=== PATIENT | female | born 1965 | race Caucasian/White ===

== ENCOUNTER 2016-07-30 15:14 | Emergency (ER) | payer OTHER ==
[2016-07-30 15:54] LABS: SPECIFIC GRAVITY 1.025 (1.001-1.030); URINE BILIRUBIN 3+ (NEGATIVE); URINE BLOOD 3+ (NEGATIVE); URINE GLUCOSE (UA) NEGATIVE (NEGATIVE); URINE NITRITE POSITIVE (NEGATIVE); URINE PROTEIN 1+ (NEGATIVE)
[2016-07-30 15:58] LABS: HCG,QUALITATIVE URINE NEGATIVE
[2016-07-30 16:00] LABS: URINE APPEARANCE HAZY; URINE COLOR ORANGE; URINE LEUKOCYTE ESTERASE NEGATIVE (NEGATIVE); URINE UROBILINOGEN 8 mg/dL (0-1 mg/dl)
[2016-07-30 16:03] LABS: URINE RBC 50-60 /hpf
[2016-07-30 16:04] LABS: URINE BACTERIA 1+; URINE EPITHELIAL CELLS 15-20 /hpf
[2016-07-30] MEDS ORDERED: ONDANSETRON 4 MG ODT TAB ONE (16:56)
--- NOTE | 2016-07-30 17:52 | CT ---
Exam: CT abdomen and pelvis without contrast COMPARISON: None INDICATION: Left flank pain. TECHNIQUE: CT examination of the abdomen and pelvis was obtained without contrast using a renal stone protocol. FINDINGS: There is mild nonspecific perinephric stranding bilaterally which appears symmetric. There is no hydronephrosis. No calculus is identified within either kidney, ureter or bladder. Several phleboliths are noted within the pelvis. A 4 mm calculus is noted on image 174 of 177 in between the labia. Uterus is present and within normal limits. There is no adnexal mass. Urinary bladder unremarkable. LAP-BAND is noted. The bowel, including the appendix, is unremarkable and there is no bowel obstruction, free air or free intraperitoneal fluid. Gallbladder surgically absent. The liver, spleen, pancreas and adrenal glands are all unremarkable on this noncontrast exam. Tiny fat-containing periumbilical hernia is noted. There is minor scarring or atelectasis within the right middle lobe. Lung bases otherwise clear. No worrisome lytic or blastic osseous lesion is identified. Facet arthropathy is noted within the lower lumbar spine. IMPRESSION: No acute findings identified to explain left flank pain. There is, however, a 4 mm calculus in between the labia which could potentially reflect recently passed urinary calculus. No additional urinary calculi are identified. Findings were discussed with Dr. Espinosa at 1745 hours 07/30/2016.
== END 2016-07-30 18:15 | disposition home or self-care (01) ==
LOC: ED 15:14
DX: N20.0 Calculus of kidney (principal); I10 Essential (primary) hypertension; E03.9 Hypothyroidism, unspecified
CPT/HCPCS: 81025; 81001; 74176; 99283 ×2; A9270